=== PATIENT | male | born 1985 | race Caucasian/White ===

== ENCOUNTER 2020-01-28 10:35 | Emergency (ER) | payer MEDICAID ==
[~2020-01-28] VITALS: Ht 175.3 cm; Wt 100.0 kg
[2020-01-28] MEDS ORDERED: IBUPROFEN 600 MG TABLET PO ONE (11:45)
[2020-01-28] MEDS ORDERED: ACETAMINOPHEN 325 MG TABLET PO ONE (11:45)
[2020-01-28] MEDS ORDERED: CEPHALEXIN MONOHYDRATE 500 MG CAPSULE PO ONE (12:15)
[2020-01-28] MEDS ORDERED: BACITRACIN 0.9 GM PACKET OINTMENT TP ONE (12:30)
[2020-01-28 13:20] VITALS: BP 135/81
== END 2020-01-28 13:29 | disposition home or self-care (01) ==
LOC: EMS 10:39
DX: S61.411A Laceration without foreign body of right hand, initial encounter (principal); S80.811A Abrasion, right lower leg, initial encounter; W01.0XXA Fall on same level from slipping, tripping and stumbling without subsequent striking against object, initial encounter; Y93.01 Activity, walking, marching and hiking; Y92.89 Other specified places as the place of occurrence of the external cause; Y99.8 Other external cause status
CPT/HCPCS: 73130-TC; Z7502; Z7610